=== PATIENT | male | born 1990 | race Caucasian/White ===

== ENCOUNTER 2020-09-07 09:57 | Day surgery (SDC) | payer OTHER ==
[~2020-09-07] VITALS: Ht 162.6 cm; Wt 81.6 kg
[~2020-09-07 09:57] MED LIST: ADVAIR HFA 230M12 GM INH; BUSPIRONE HCL5 MG PO; DULOXETINE HCL20 MG PO; PROAIR HFA8.5 GM INH; SPIRIVA RESPIMAT4 GM INH; TOPAMAX 25 MG T25 M1 PO
[2020-09-07 10:42] VITALS: BP 128/78
[2020-09-07 14:41] VITALS: BP 128/78
--- NOTE | 2020-09-08 07:38 | O ---
Formerly [facility] [place] [address] OPERATIVE REPORT Name: MISAEL JEAN Room #: DEP [facility]..#: [id number] Admission: 09/07/20 Attend Phys: Abdoulaye Chiu MD Discharge: 09/07/20 Date of : 88 Report #: [id number] THIS REPORT FOR: cc: FAM - Family physician unknown FAM - Family physician unknown Abdoulaye Chiu MD ~ DOC #: [id number] Abdoulaye Chiu MD DATE OF SERVICE: 09/07/2020 SERVICE: Orthopedics. FACILITY: [place]. SURGEON: Abdoulaye Chiu MD INDUSTRIAL WELDER: Anjelica Tavera NP PREOPERATIVE DIAGNOSES: 1. Left knee pain. 2. Left knee patellar chondromalacia. 3. Left knee patellar malalignment. 4. Status post previous left knee arthroscopy with medial patellofemoral ligament reconstruction at another facility. 5. 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 POSTOPERATIVE DIAGNOSES: 1. Left knee pain. 2. Left knee patellar chondromalacia. 3. Left knee patellar malalignment. 4. Status post previous left knee arthroscopy with medial patellofemoral ligament reconstruction at another facility. 5. 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 PROCEDURE PERFORMED: 1. Left knee arthroscopy with chondroplasty and articular cartilage biopsy. 2. Left knee open common peroneal nerve decompression. FINDINGS: 1. Grade 3 and 4 chondromalacia of the central portion of the patella measuring 2 x 2 cm. 2. Lateral patellar tracking, which will be addressed at the second stage of this reconstruction with the medializing osteotomy. 3. Adequate stability of the previous MPFL reconstruction. 4. Cartilage biopsy for planned second for a planned 2-stage CARLOS MANUEL reconstruction. Formerly [facility] [address] [place] [address] OPERATIVE REPORT Name: MISAEL JEAN Room #: DEP [facility] [place].#: [id number] Admission: 09/07/20 Attend Phys: Abdoulaye Chiu MD Discharge: 09/07/20 Date of : 88 Report #: [id number] 5. Common peroneal nerve decompression performed. Compression at the fibular neck noted and relieved. COMPLICATIONS: None. DRAINS: None. SPECIMENS: Cartilage sent to [facility] for CARLOS MANUEL reconstruction. HISTORY: The patient is a 29-year-old gentleman who is an active-duty member of [employer] who has a history of persistent left knee pain. He had some patellar instability and had a MPFL reconstruction. He has had pain and difficulty since. He continues to have patellofemoral crepitus and he had findings that are consistent with patellofemoral chondromalacia and a suggestion of lateral patellar tracking and malalignment. He also had neurologic symptoms and so we ordered an EMG, which showed peroneal nerve entrapment around the fibular neck. He is indicated for surgical management. We plan for 2-stage reconstruction with articular cartilage grafting of the patella and then medializing TTO. Risks, benefits, alternatives and indications were discussed with him in detail. Risks including, but are not limited to, pain, bleeding, infection, injury to nerves or blood vessels, persistent pain despite surgical intervention, failure of any repairs, progression of preexisting chondral injury, stiffness, need for further surgery as well as complications related to anesthesia. Despite the risks, he wished to proceed. PROCEDURE IN DETAIL: After left lower extremity was correctly identified in the preoperative holding area as operative extremity, the patient was taken to the operating room where general anesthesia was induced without complications and padded appropriately. Prophylactic antibiotics were administered at appropriate time. Left leg had tourniquet applied and was prepped and draped in standard sterile fashion. Timeout procedure performed. Esmarch were used, tourniquet inflated to 250 mmHg. Standard anterolateral viewing portal was established followed by an anteromedial working portal. Diagnostic arthroscopy revealed the above findings. The central apex of the patella had grade 3 chondromalacia; and on assessment with the probe, I confirmed a small area that was full-thickness, grade 4. The overall surface area of the chondromalacia, which extended from grade 2 to grade 4 types and surrounded this central most significant area, was 2 cm proximal to distal x 2 cm medial to lateral. He also had clear evidence of lateral patellar maltracking and this will be addressed with reconstruction. His examination under anesthesia indicated that the patella had good patellar lateral stability. However, the MRI preoperatively indicates that there may be pathology in the distal quadriceps pertaining to anchor fixation and/or graft present, so this will be evaluated at the time of the second stage of the [address] [address] OPERATIVE REPORT Name: MISAEL JEAN Room #: DEP [facility]#: [id number] Admission: 09/07/20 Attend Phys: Abdoulaye Chiu MD Discharge: 09/07/20 Date of : 88 Report #: [id number] reconstruction and we will make plans for allograft revision and reconstruction if indicated. The shaver was used to perform limited debridement. The medial and lateral compartments were normal in appearance, as were the cruciate ligaments. The ligamentum mucosum was resected with a shaver and then the shaver was used to perform a chondroplasty of the central portion of the patella. We then placed the knee in 90-degree position and used a 1/4-inch curved osteotome to harvest an osteochondral biopsy off the lateral shoulder of the medial femoral condyle just anterior to the PCL insertion. Two tic-tac size segments were removed and sent to [facility] for cartilage biopsy. After this was completed, the arthroscopic effusion was drained. Instruments were removed. Attention turned towards to the peripheral nerve procedure. A longitudinal incision was made just posterior to the fibular head and full-thickness skin flaps were developed. Hemostasis was achieved on the way down. The fascia was incised; and then working from proximal to distal, the common peroneal nerve was visualized posterior to the long head of the biceps tendon. This was dissected free circumferentially where it exited the muscle and this dissection was then carried down distally, protecting the nerve throughout the dissection until it went around the fibular neck and then the nerve was followed into the anterior compartment. The nerve was flat, but otherwise appeared normal in the more proximal area, but as it entered the anterior compartment, the space in the past, which was quite tight and there was thickened fascia investing around the most proximal portion of the tibialis anterior muscle, this was incised sharply and then the muscle was dissected free of the tunnel anteriorly so that the roof was removed and then there was also a band that arced around posterior to the nerve and it was rather tight on the superior side as well and this band of fascia was transected and then removed, so the nerve was now surrounded by muscle and was very mobile and soft and there was no excessive constriction around it. After a complete exploration and confirmation that an adequate resection had been completed, we let the tourniquet down and ensured hemostasis was achieved. There was no significant bleeding. The wound was closed with 2-0 Vicryl suture followed by running subcuticular 3-0 Monocryl and Dermabond and a sterile dressing was then applied to the left leg. The left leg was then placed in a compression hose and the patient was awakened from anesthesia and taken to recovery room in stable condition. There were no complications. All counts were correct. Postoperative plan will be for weightbearing as tolerated with early rehab on this particular surgery. His second stage surgery will be a medializing tibial tubercle osteotomy with slight anteriorization, CARLOS MANUEL to the patella and possible hardware removal, possible medial patellofemoral ligament revision [address] [address] OPERATIVE REPORT Name: MISAEL JEAN Room #: DEP [facility].#: [id number] Admission: 09/07/20 Attend Phys: Abdoulaye Chiu MD Discharge: 09/07/20 Date of : 88 Report #: [id number] reconstruction based on intraoperative findings at the time of the open arthrotomy. Abdoulaye Chiu MD MPM/VIS <ELECTRONICALLY SIGNED> By: Abdoulaye Chiu MD 09/08/20 0738 [id number] 1729 Abdoulaye Chiu MD /joann
== END 2020-09-07 15:23 | disposition home or self-care (01) ==
LOC: OR 09:57 → TBA 09:57 → OR 12:55
PROVIDERS: ATTEND Orthopaedic Surgery Sports Medicine
DX: M25.562 Pain in left knee (principal); M94.262 Chondromalacia, left knee; M22.8X2 Other disorders of patella, left knee; J45.909 Unspecified asthma, uncomplicated; F32.9 Major depressive disorder, single episode, unspecified; F41.9 Anxiety disorder, unspecified; Z98.890 Other specified postprocedural states; Z79.899 Other long term (current) drug therapy
CPT/HCPCS: 50010; 50101; 50386; 50405; 50954; 54118; 56527; 56528; 57103; 57179; 58589; 58680; 62110; 62900; 70005

== ENCOUNTER 2020-12-22 06:23 | Day surgery (SDC) | payer OTHER ==
[~2020-12-22] VITALS: Ht 165.1 cm; Wt 82.1 kg
[~2020-12-22 06:23] MED LIST changes: +BUSPIRONE HCL15 MG PO; +EFFEXOR XR150 MG PO; +VITAMIN D21250 MCG PO; +XOLAIR150 MG/1 M
[2020-12-22 07:59] VITALS: BP 117/78
[2020-12-22 13:19] VITALS: BP 117/78
--- NOTE | 2020-12-28 15:31 | O ---
[facility] [address] [place] [address] OPERATIVE REPORT Name: MISAEL JEAN Room #: DEP [facility] M.R.#: [id number] Admission: 12/22/20 Attend Phys: Abdoulaye Chiu MD Discharge: 12/22/20 Date of : 88 Report #: [id number] THIS REPORT FOR: cc: FAM - Family physician unknown FAM - Family physician unknown Abdoulaye Chiu MD ~ DATE OF SERVICE: 12/22/2020 SERVICE: Orthopedics. FACILITY: [place]. SURGEON: Abdoulaye Chiu MD APPLICATION TECHNICIAN: Anjelica Tavera. INDICATIONS FOR APPLICATION TECHNICIAN: Extremity positioning, retraction, exposure, graft, implantation and closure. PREOPERATIVE DIAGNOSES: 1. Left knee pain. 2. Left knee patellar chondromalacia. 3. Left knee patellar maltracking. 4. Retained orthopedic implant, left knee. 5. Status post previous medial patellofemoral ligament reconstruction, left knee. POSTOPERATIVE DIAGNOSES: 1. Left knee pain. 2. Left knee patellar chondromalacia. 3. Left knee patellar maltracking. 4. Retained orthopedic implant, left knee. 5. Status post previous medial patellofemoral ligament reconstruction, left knee. PROCEDURES: 1. Matrix based autologous chondrocyte implantation to the left patella. 2. Medializing tibial tubercle osteotomy, left knee. 3. Medial patellofemoral ligament plication, left knee. 4. Hardware removal, left knee. COMPLICATIONS: None. DRAINS: None. SPECIMENS: None. [facility] [address] [place] [address] OPERATIVE REPORT Name: MISAEL JEAN Room #: DEP [facility] M.R.#: [id number] Admission: 12/22/20 Attend Phys: Abdoulaye Chiu MD Discharge: 12/22/20 Date of : 88 Report #: [id number] ANESTHESIA: General with regional. FINDINGS: 1. A 2.7 square cm oval autograft CARLOS MANUEL to patella. 2. A 9 mm medialization tibial tubercle osteotomy fixed with Laurie 4.5 mm large thread cancellous screw proximally measuring 50 mm in length and 4.5 mm cortical screw distally measuring 42 mm in length. 3. Suture anchor removed from previous surgery and discarded. 4. MPFL plication performed over revision MPFL reconstruction as there was satisfactory collagen tissue medially for the plication and he did not have excessive lateral translation on physical examination indicating satisfactory MPFL tissue volume. HISTORY: The patient is a 30-year-old member of [employer] with a history of persistent and progressive left knee pain. He presented for consultation after having undergone previous surgery to his left knee. We made decision to proceed with a staged approach, specifically looking at an articular cartilage grafting of the patella and then anticipating a medializing tibial tubercle osteotomy. MRI suggested there may be a suture anchor proximal to the patella and so I made plans to consider excision. This indicated as well as addressing any soft tissue components of the patellar instability. Risks, benefits, alternatives and indications for surgery discussed with him in detail. Risks include but not limited to pain, bleeding, infection, injuring nerves or blood vessels, persistent pain despite surgical intervention, failure of any repairs or reconstructions, progression of preexisting chondral injury, failure of the graft, nonunion, malunion, need for further surgery as well as complications related to anesthesia. Despite the risks, he wished to proceed. PROCEDURE IN DETAIL: After left lower extremity was correctly identified in the preoperative holding area as the operative extremity, the patient underwent regional nerve block and then taken to the operating room. General anesthesia was induced without complications. He was padded appropriately. Prophylactic antibiotics were administered in appropriate time. Tourniquet was applied to left leg. Left lower extremity was then prepped and draped in standard sterile fashion. Timeout procedure was performed. The previous incisions were incorporated into an anterior approach and then a medial parapatellar arthrotomy was performed. During the exposure, the sutures from the previous MPFL ligament reconstruction was visualized. There was some thickening and hypertrophic tissue in the distal quadriceps tendon just proximal to the patellar tendon. I was suspicious that there may be a suture anchor located here based on assessment of the preoperative MRI. So a horizontal split was made in the proximal patellar tendon that fell with the sutures down to an Arthrex SwiveLock anchor, which was positioned in the quadriceps tendon. This [facility] [address] [place] [address] OPERATIVE REPORT Name: MISAEL JEAN Room #: DEP [facility]#: [id number] Admission: 12/22/20 Attend Phys: Abdoulaye Chiu MD Discharge: 12/22/20 Date of : 88 Report #: [id number] was excised successfully. There was no evidence of permanent injury from this, and the anchor and the eyelet were successfully removed as were the sutures. The cartilaginous area was sufficient for repair and plication as opposed to necessitating a revision MPFL reconstruction. The exposure was then continued with the parapatellar arthrotomy. Retropatellar fat pad was from the patellar tendon. A portion of this was resected. The articular cartilage of the tibiofemoral articulation as well as the menisci were protected. The dissection was taken down to the tibial tubercle and then a microsagittal saw was used to perform a transverse osteotomy of the tibial tubercle after the anterior compartment was reflected off the lateral aspect of the proximal tibia. A hinge tissue was left distally and this allowed for mobilization of the tubercle in the medial position. The patella was then everted and then the cartilage reconstruction was performed. I assessed different templates and ultimately selected the oval 2.7 square cm template and then we stamped the perimeter and then used the 15 blade and ring curette to excise all of the articular cartilage and clipped that down to the calcified cartilage layer. There was an osteophyte on the anteromedial aspect of the patella. This was resected with a curette to plantar surface. After all delicate preparation being completed, tourniquet down, used thrombin-soaked Gelfoam as well as the epi-soaked sponge to obtain hemostasis. The patient received TXA after tourniquet came down. There was no evidence of significant bleeding at the wound bed and then we stamped out the CARLOS MANUEL autograft patch and then placed a thin layer of fibrin glue at the base of the recipient site on the patella and then placed the graft in appropriate orientation. This was allowed to cure as the air bubbles were removed and then a top perimeter layer of fibrin glue was applied. The patella was then gently reduced after the fibrin glue had cured and then we turned our attention to the tibial tubercle osteotomy. The tibial tubercle was medialized 9 mm using a ruler to assess and then was pinned in position with a K-wire. I then performed 2-screw fixation of the tibial tubercle with a lag screw technique. The first screw ultimately did not have the best purchase with the cortical screw, so I switched to cancellous screw and obtained excellent compressive fixation. The distal screw had good fixation on the lateral cortex as well with decompression achieved and the screws were countersunk. Cross table lateral x-rays were taken throughout the fixation to ensure safe and proper implant placement. The wound was then copiously irrigated. We checked the graft once more to ensure that it was fitting well. The knee was bent from 0 to 45 degrees without any difficulty, and there was no extra strain on the graft, and it was well fixed. We then used 0 Vicryl suture in [id number] fashion to perform closure of the medial arthrotomy and then the MPFL tissue was plicated over the top with [id number] type suture configuration in the position of the MPFL at the upper medial border of the patella. After this was completed, portion of the lateral soft tissue release was repaired with 0 Vicryl suture and then the [address] [address] OPERATIVE REPORT Name: MISAEL JEAN Room #: DEP [facility] Bebeto#: [id number] Admission: 12/22/20 Attend Phys: Abdoulaye Chiu MD Discharge: 12/22/20 Date of : 88 Report #: [id number] patella appeared to be fitting nicely centered within the femur. Wound was irrigated once more. Then, the skin was closed with 2-0 Vicryl followed by running subcuticular 3-0 Monocryl. An Aquacel was applied followed by a compression stocking, PolarCare and a knee immobilizer. Postoperative protocol will be nonweightbearing initially and 0-15 degrees with the CPM, advance it to 0-30 degrees during the first week ideally. We will follow the patellofemoral simple reconstruction protocol for the CARLOS MANUEL postop protocol. There were no complications. All counts were reported correct. <ELECTRONICALLY SIGNED> By: Abdoulaye Chiu MD 12/28/20 1531 [id number] 1225 Abdoulaye Chiu MD /nt
== END 2020-12-22 14:50 | disposition home or self-care (01) ==
LOC: TBA 06:23 → OR 06:23 → TBA 06:58 → OR 08:12
PROVIDERS: ATTEND Orthopaedic Surgery Sports Medicine
DX: M25.562 Pain in left knee (principal); M22.42 Chondromalacia patellae, left knee; M22.2X2 Patellofemoral disorders, left knee; T84.84XA Pain due to internal orthopedic prosthetic devices, implants and grafts, initial encounter; J45.909 Unspecified asthma, uncomplicated; F32.9 Major depressive disorder, single episode, unspecified; F41.9 Anxiety disorder, unspecified; Z98.890 Other specified postprocedural states; Z79.899 Other long term (current) drug therapy; Z88.8 Allergy status to other drugs, medicaments and biological substances; Y83.8 Other surgical procedures as the cause of abnormal reaction of the patient, or of later complication, without mention of misadventure at the time of the procedure
CPT/HCPCS: 50010; 50101; 50415; 50951; 50954; 51320; 51436; 52001; 52282; 53337; 54006; 54118; 56527; 56528; 57103; 57180; 59010; 59011; 59012; 59013; 62110; 62900; 64039; 70005